=== PATIENT | male | born 1985 | race Caucasian/White ===

== ENCOUNTER 2018-06-21 08:47 | Day surgery (SDC) | payer OTHER ==
[~2018-06-21] VITALS: Ht 170.2 cm; Wt 106.6 kg
[2018-06-21 09:41] LABS: BASOPHILS # (AUTO) 0.1 K/uL (0.00-0.22); BASOPHILS % (AUTO) 1.2 % (0.0-2.0); EOSINOPHILS % (AUTO) 0.1 % (0.0-4.0); HEMOGLOBIN 14.8 g/dL (12.0-18.0); LYMPHOCYTES # (AUTO) 0.9 K/uL (2.0-11.5); LYMPHOCYTES % (AUTO) 15.9 % (20.5-51.1); MEAN CORPUSCULAR HEMOGLOBIN 32 pg (27-31); MEAN CORPUSCULAR HGB CONC 35 g/dL (33-37); MEAN CORPUSCULAR VOLUME 93.7 fL (80-94); MONOCYTES # (AUTO) 0.6 K/uL (0.8-1.0); MONOCYTES % (AUTO) 9.9 % (1.7-9.3); NEUTROPHILS # (AUTO) 4.2 K/uL (1.8-7.7); NEUTROPHILS % (AUTO) 72.9 % (42.2-75.2); PLATELET COUNT (AUTO) 88 K/uL (140-450); RED BLOOD CELL COUNT(AUTO) 4.59 MIL/uL (4.20-6.10); RED CELL DISTRIBUTION WIDTH 13.2 % (11.6-13.7); WHITE BLOOD COUNT (AUTO) 5.8 K/uL (4.8-10.8)
[2018-06-21 09:59] LABS: PROTHROMBIN TIME 10.9 secs (10.8-13.4)
[2018-06-21] MEDS ORDERED: SPIR25TA21 PO (10:16)
[2018-06-21] MEDS ORDERED: LIDOCAINE 2% 1000 MG/50 ML VIAL INJ ONE (10:51)
== END 2018-06-21 13:00 | disposition home or self-care (01) ==
LOC: MDS 08:47 → MMU 08:47 → MDS 13:00
PROVIDERS: ATTEND Internal Medicine Gastroenterology
DX: K70.10 Alcoholic hepatitis without ascites (principal); I10 Essential (primary) hypertension; E11.9 Type 2 diabetes mellitus without complications; F10.21 Alcohol dependence, in remission; E66.9 Obesity, unspecified; Z68.36 Body mass index [BMI] 36.0-36.9, adult; Z79.899 Other long term (current) drug therapy; Z72.89 Other problems related to lifestyle; Z87.891 Personal history of nicotine dependence; Z98.890 Other specified postprocedural states
CPT/HCPCS: 36415; 47000; 76942; 85025; 85610; 85730; 88307; 88313; J2001; Q0092

== ENCOUNTER 2019-06-06 09:53 | Inpatient (IN) | payer OTHER ==
[~2019-06-06] VITALS: Ht 172.7 cm; Wt 91.6 kg
[~2019-06-06 09:53] MED LIST: SPIR25TA21 PO
[2019-06-06 10:05] VITALS: BP 144/74
--- NOTE | 2019-06-06 10:45 | NUR ---
PT ARRIVED TO ED C/O N,V,D X 2 DAYS. PT STATES, "THE VOMITTING LOOKED YELLOW, AND MY LAST DRINK WAS THURSDAY" PT RATES PAIN LEVEL 8/10 ON THE ABD, AND DESCRIBES THE PAIN PRESSURE. PT ABD IS SOFT, FLAT, NONTENDER. BS PRESENT IN ALL 4 QUADS. PT SCERLA IS YELLOW AND SKIN IS JAUNDICE. PT STATES, "GADIEL BEEN JAUNDICE SINCE LAST THURSDAY." PT IS A&O X 4. PMH: HEPATITIS, HTN, DM NKA.
[2019-06-06] MEDS ORDERED: MULTIVITAMIN-12 10 ML, THIAMINE 100 MG, MAGNESIUM SULFATE 50% 2,000 MG, FOLIC ACID 1 MG... IV SCH ×5 (11:20)
[2019-06-06] MEDS ORDERED: ONDANSETRON 4 MG/2 ML VIAL IVP ONE (11:20)
[2019-06-06] MEDS ORDERED: PANTOPRAZOLE 40 MG INJ VIAL IVP ONE (11:20)
[2019-06-06 11:35] LABS: BASOPHILS # (AUTO) 0.1 K/uL (0.00-0.22); BASOPHILS % (AUTO) 1.4 % (0.0-2.0); EOSINOPHILS % (AUTO) 0.5 % (0.0-4.0); HEMATOCRIT 42.3 % (36-52); HEMOGLOBIN 14.7 g/dL (12.0-18.0); LYMPHOCYTES # (AUTO) 0.4 K/uL (2.0-11.5); LYMPHOCYTES % (AUTO) 8.1 % (20.5-51.1); MEAN CORPUSCULAR HEMOGLOBIN 36 pg (27-31); MEAN CORPUSCULAR HGB CONC 35 g/dL (33-37); MEAN CORPUSCULAR VOLUME 102.2 fL (80-94); MONOCYTES # (AUTO) 0.7 K/uL (0.8-1.0); MONOCYTES % (AUTO) 15.7 % (1.7-9.3); NEUTROPHILS # (AUTO) 3.5 K/uL (1.8-7.7); NEUTROPHILS % (AUTO) 74.3 % (42.2-75.2); PLATELET COUNT (AUTO) 38 K/uL (140-450); RED BLOOD CELL COUNT(AUTO) 4.14 MIL/uL (4.20-6.10); RED CELL DISTRIBUTION WIDTH 17.9 % (11.6-13.7); WHITE BLOOD COUNT (AUTO) 4.7 K/uL (4.8-10.8)
[2019-06-06 11:58] LABS: PROTHROMBIN TIME 15.3 secs (10.8-13.4)
[2019-06-06 11:59] LABS: ANION GAP 14.9 (8-16); CARBON DIOXIDE 25.5 mmol/L (21-32); CREATININE 0.5 mg/dL (0.7-1.3); POTASSIUM 3.4 mmol/L (3.5-5.1)
[2019-06-06 12:00] LABS: APPEARANCE,URINE CLEAR (CLEAR); BILIRUBIN,URINE 3+ (NEGATIVE); BLOOD, URINE NEGATIVE (NEGATIVE); COLOR,URINE AMBER (YELLOW); LEUKOCYTE ESTERASE ,URINE TRACE (NEGATIVE); NITRITE, URINE POSITIVE (NEGATIVE); UGLUCOSE 3+ (NEGATIVE)
[2019-06-06 12:15] LABS: ALBUMIN 2.9 g/dL (3.4-5.0); TOTAL BILIRUBIN 33.8 mg/dL (0.0-1.0)
[2019-06-06 12:23] LABS: RBC,URINE 0-5 /HPF (0-5); WBC,URINE 0-5 /HPF (0-5)
[2019-06-06] MEDS ORDERED: LORazepam 2 MG/ML VIAL IVP ONE ×2 (13:05→13:55)
[2019-06-06] MEDS ORDERED: LACTULOSE 20 GM/30 ML UDC PO ONE (13:55)
[2019-06-06] MEDS ORDERED: LEVOFLOXACIN 500 MG/D5W PREMIX 100 ML IV ONE (13:55)
--- NOTE | 2019-06-06 14:40 | NUR ---
RECEIVED PT FROM ED NURSE RUSSELL. PT IS A&O X 4, AMBULATORY, AND ABLE TO MAKE NEEDS KNOWN. PT IS NOT A FALL RISK. PT'S FACE AND SCLERA APPEAR JAUNDICED. PT NO C/O ANY PAIN OR NAUSEA AT THIS TIME. PT IS ON ROOM AIR, SKIN INTACT. VS UPON ADMISSION: BP 125/72, HR 99, O2 97%, TEMP 98.8, RR 18. IV SITE IS IN THE L AC, 20 G. CALL LIGHT IS GIVEN WITHIN REACH, PT FAMILIARIZED WITH THE ROOM.
--- NOTE | 2019-06-06 14:46 | NUR ---
Patient will be admitted to care of [facility]. Admited to TELE. Will go to room 11A. Belongings list completed. Report to KOSTAS IZAGUIRRE.
[2019-06-06 15:55] VITALS: BP 125/72
--- NOTE | 2019-06-06 16:30 | NUR ---
PT SEEN BY DR COFFMAN
[2019-06-06] MEDS ORDERED: LORazepam 1 MG TAB PO PRN (17:05)
[2019-06-06] MEDS ORDERED: HYDROcodone/APAP 5/325 MG 1 TAB TAB PO PRN ×2 (17:15)
[2019-06-06] MEDS ORDERED: IPRATROPIUM 0.02% 0.5 MG/2.5 ML NEBU INH PRN (17:15)
[2019-06-06] MEDS ORDERED: ACETAMINOPHEN 325 MG TAB PO PRN (17:15)
[2019-06-06] MEDS ORDERED: MAGNESIUM OXIDE 400 MG TAB PO PRN (17:15)
[2019-06-06] MEDS ORDERED: MAG SULF 2000 MG/WATER PREMIX 50 ML IV PRN (17:15)
[2019-06-06] MEDS ORDERED: ALUMINUM HYD/MAG/SIMETHICONE 30 ML UDC PO PRN (17:15)
[2019-06-06] MEDS ORDERED: MORPHINE SULFATE 2 MG/ML SYR IVP PRN (17:15)
[2019-06-06] MEDS ORDERED: ONDANSETRON 4 MG/2 ML VIAL IVP PRN (17:15)
[2019-06-06] MEDS ORDERED: SODIUM PHOSPHATE 118 ML ENEM RC PRN (17:15)
[2019-06-06] MEDS ORDERED: ACETAMINOPHEN 650 MG SUPP RC PRN (17:15)
[2019-06-06] MEDS ORDERED: BISACODYL 10 MG SUPP RC PRN (17:15)
[2019-06-06] MEDS ORDERED: cloNIDine 0.1 MG TAB PO PRN (17:15)
[2019-06-06] MEDS ORDERED: diphenhydrAMINE 50 MG/ML VIAL IVP PRN (17:15)
[2019-06-06] MEDS ORDERED: DOCUSATE SODIUM 250 MG GELCAP PO PRN (17:15)
[2019-06-06] MEDS ORDERED: POTASSIUM CHLORIDE 10 MEQ TABER PO PRN (17:15)
[2019-06-06] MEDS ORDERED: LORazepam 2 MG/ML VIAL IVP PRN (17:15)
[2019-06-06] MEDS ORDERED: DEXTROSE 50% 50 ML SYR IVP PRN (17:15)
[2019-06-06] MEDS ORDERED: ALBUTEROL 0.083% 2.5 MG/3 ML NEBU INH PRN (17:15)
[2019-06-06] MEDS ORDERED: ZOLPIDEM 5 MG TAB PO PRN (17:15)
[2019-06-06] MEDS ORDERED: guaiFENesin DM 200/20 MG-10 ML 10 ML UDC PO PRN (17:15)
[2019-06-06] MEDS: NEOMYCIN 500 MG TAB PO SCH (17:34)
--- NOTE | 2019-06-06 17:44 | NUR ---
PT ASLEEP COMFORTABLY, NO S/S OF ANY ACUTE DISTRESS.
[2019-06-06] MEDS: methylPREDNISolone 4 MG TAB PO SCH (18:03)
--- NOTE | 2019-06-06 19:50 | NUR ---
PT ENDORSED TO PROFESSOR OF HISTORICAL THEOLOGY IN STABLE CONDITION
--- NOTE | 2019-06-06 19:51 | NUR ---
BEDSIDE REPORT RECEIVED FROM DAY SHIFT RN. A/O X4 PERSON PLACE TIME AND EVENT. DISCUSSED PLAN OF CARE. VERBALIZED UNDERSTANDING. AMBULATORY WITH STEADY GAIT. NO SIGNS OF DISTRESS. NO SOB. EVEN UNLABORED BREATHING. ROOM AIR. NO PAIN REPORTED AT THIS TIME. SKIN INTACT. IV @ L AC 20G. PATENT AND INTACT. TELE MONITOR PLACED. BED IN LOWEST POSITION. CALL LIGHT WITHIN REACH. WILL CONTINUE TO MONITOR.
[2019-06-06 20:00] VITALS: BP 127/73
[2019-06-06] MEDS: BLOOD GLUCOSE MONITORING 1 DEV DEV FS SCH (20:09)
--- NOTE | 2019-06-06 20:13 | NUR ---
RECEIVED PATIENT ON ROOM AIR, PULSE OX SAT 99%. PATIENT DENIES SOB. PRN BREATHING TREATMENT NOT INDICATED AT THIS TIME. NO ACUTE RESPIRATORY DISTRESS NOTED. WILL CONTINUE TO MONITOR.
[2019-06-06] MEDS: LACTULOSE 20 GM/30 ML UDC PO SCH (20:22)
--- NOTE | 2019-06-06 21:00 | NUR ---
SCHEDULED MEDS ADMINISTERED. EDUCATED ON SIDE EFFECTS AND VERBALIZED UNDERSTANDING. VSS.
[2019-06-06] MEDS: INSULIN LISPRO SLIDING SCALE 100 UNITS/ML VIAL SUBQ PRN (21:06)
--- NOTE | 2019-06-06 23:00 | NUR ---
PT AMBULATED TO RESTROOM. STEADY GAIT. NO SIGNS OF DISTRESS. WILL CONTINUE TO MONITOR.
[2019-06-07] VITALS: BP 127/86
--- NOTE | 2019-06-07 00:47 | NUR ---
PT SLEEPING IN BED. EASILY AROUSABLE. VSS. NO PAIN REPORTED AT THIS TIME.
--- NOTE | 2019-06-07 02:45 | NUR ---
PT IS SLEEPING IN BED EASILY AROUSABLE. NO SIGNS OF DISTRESS. NO PAIN REPORTED. WILL CONTINUE TO MONITOR.
--- NOTE | 2019-06-07 03:46 | NUR ---
RECEIVED FROM PATRICIA KENYON.PT IS SLEEPING W/O S/S OF ANY DISTRESS.CALL LIGHT IN REACH.WILL CONT.MONITOR PT.
[2019-06-07 04:00] VITALS: BP 129/75
--- NOTE | 2019-06-07 04:38 | NUR ---
SLEEPING.HR IS SR.NO DISTRESS NOTED AT TIS TIME.
[2019-06-07] MEDS: BLOOD GLUCOSE MONITORING 1 DEV DEV FS SCH ×4 (05:40→21:38)
[2019-06-07] MEDS: INSULIN LISPRO SLIDING SCALE 100 UNITS/ML VIAL SUBQ PRN ×4 (05:41→22:06)
[2019-06-07] MEDS: NEOMYCIN 500 MG TAB PO SCH ×4 (05:41→17:24)
--- NOTE | 2019-06-07 06:06 | NUR ---
ZU=[id number],COVERED PER SLIDING SCALE.NO C/O PAIN OR ANY DISCOMFORT.
[2019-06-07 07:04] LABS: BASOPHILS % (AUTO) 0.1 % (0.0-2.0); HEMATOCRIT 42.6 % (36-52); HEMOGLOBIN 14.8 g/dL (12.0-18.0); LYMPHOCYTES # (AUTO) 0.6 K/uL (2.0-11.5); LYMPHOCYTES % (AUTO) 14.2 % (20.5-51.1); MEAN CORPUSCULAR HEMOGLOBIN 36 pg (27-31); MEAN CORPUSCULAR HGB CONC 35 g/dL (33-37); MEAN CORPUSCULAR VOLUME 103.2 fL (80-94); MONOCYTES # (AUTO) 0.3 K/uL (0.8-1.0); MONOCYTES % (AUTO) 6.6 % (1.7-9.3); NEUTROPHILS # (AUTO) 3.1 K/uL (1.8-7.7); NEUTROPHILS % (AUTO) 79.1 % (42.2-75.2); PLATELET COUNT (AUTO) 44 K/uL (140-450); RED BLOOD CELL COUNT(AUTO) 4.13 MIL/uL (4.20-6.10); RED CELL DISTRIBUTION WIDTH 18.1 % (11.6-13.7); WHITE BLOOD COUNT (AUTO) 3.9 K/uL (4.8-10.8)
--- NOTE | 2019-06-07 07:19 | NUR ---
Received report from shift nurse manager nurse. Pt is resting in bed. Call light in reach.
[2019-06-07 07:33] LABS: ALBUMIN 2.7 g/dL (3.4-5.0); ANION GAP 18.2 (8-16); CARBON DIOXIDE 19.2 mmol/L (21-32); CREATININE 0.5 mg/dL (0.7-1.3); POTASSIUM 4.4 mmol/L (3.5-5.1); TOTAL BILIRUBIN 36.8 mg/dL (0.0-1.0)
[2019-06-07 08:00] VITALS: BP 149/86
--- NOTE | 2019-06-07 08:14 | NUR ---
PATIENT HAS BEEN SCREENED AND CATEGORIZED MODERATE NUTRITION RISK. PATIENT WILL BE SEEN WITHIN 3-5 DAYS OF ADMISSION. 06/09/19 06/11/[address]
[2019-06-07] MEDS: LACTULOSE 20 GM/30 ML UDC PO SCH ×4 (08:22→21:38)
--- NOTE | 2019-06-07 08:22 | NUR ---
Observed pt with generalized shakiness, no signs of distress, no c/o discomfort/pain. Lorazepam po administered. Bed alarm on, call light within reach. Instructed pt to call nurse for assistance with toileting & amb, verbalized understanding.
[2019-06-07] MEDS: MULTIVITAMIN-12 10 ML, THIAMINE 100 MG, MAGNESIUM SULFATE 50% 2,000 MG, FOLIC ACID 1 MG... IV SCH ×5 (10:25)
[2019-06-07] MEDS: methylPREDNISolone 4 MG TAB PO SCH (10:39)
--- NOTE | 2019-06-07 10:52 | NUR ---
PT SLEEPING IN BED. RESPONSIVE. NO PAIN REPORTED AT THIS TIME
[2019-06-07 12:00] VITALS: BP 118/70
[2019-06-07] MEDS ORDERED: MAG SULF 2000 MG/WATER PREMIX 50 ML IV SCH (12:00)
--- NOTE | 2019-06-07 12:00 | NUR ---
Magnesium sulfate at 1200 not given due to banana bag infusing with magnesium.
--- NOTE | 2019-06-07 13:23 | NUR ---
PT IS SLEEPING. NO SIGNS OF DISTRESS. NO PAIN REPORTED. WILL CONTINUE TO MONITOR.
--- NOTE | 2019-06-07 13:45 | NUR ---
Dr. Fernandez notified of blood cx preliminary result with GRAM POSITIVE COCCI IN CLUSTERS. Per dr, specimen is contaminated. No new orders at this time.
--- NOTE | 2019-06-07 15:54 | NUR ---
YE called PCP's office. YE scheduled appointment for patient with PCP Dr. Arnold Prado [phone]. Patient's appointment is at 06/15/2019 @ 9:30AM at [address] [place] [address]. Patient was made aware of appointment. YE/BRADLEY will follow up as needed.
[2019-06-07 16:00] VITALS: BP 131/69
--- NOTE | 2019-06-07 16:51 | NUR ---
Pt resting in bed. No C/O pain. Family at bed side. Call light within reach.
--- NOTE | 2019-06-07 19:15 | NUR ---
RECEIVED REPORT FROM AM NURSE, PT AT BED AWAKE, ALERT, PERRLA 3MM, BRISK, BREATHING REGULARLY ON ROOM AIR, LUNG SOUNDS CLEAR THROUGHOUT, HEART RATE REGULAR, S1S2 PRESENT, CAP REFILL <3S, PULSES 2+ BILATERAL UPPER AND LOWER EXTREMITIES, ABDOMEN, SOFT, ROUND, NONDISTENDED, NONTENDER, BLADDER, SOFT, ROUND, NONDISTENDED, NONTENDER, PT HAS MUSCULOSKELETAL STRENGTH 5/5 BILATERAL UPPER AND LOWER EXTREMITIES. SKIN WARM, DRY, INTACT, PT HAS PERIPHERAL IV ON LEFT AC 20 GAUGE, RUNNING IVF MVI AT 100 ML/HR. HOB 30 DEGREES, SIDE RAILS UP X2, BED AT LOWEST POSITION.
--- NOTE | 2019-06-07 19:34 | NUR ---
PT ENDORSED TO GLOBAL TRANSPORTATION MANAGER IN STABLE CONDITION
[2019-06-07 20:00] VITALS: BP 127/76
--- NOTE | 2019-06-07 20:52 | NUR ---
RECEIVED PATIENT ON ROOM AIR, PULSE OX SAT 100%. PATIENT DENIES ANY SOB. PRN HHN NOT INDICATED AT THIS TIME. NO ACUTE RESPIRATORY DISTRESS NOTED. WILL CONTINUE TO MONITOR.
[2019-06-08] VITALS: BP 130/76
[2019-06-08] MEDS: NEOMYCIN 500 MG TAB PO SCH ×2 (00:10→04:54)
--- NOTE | 2019-06-08 00:15 | NUR ---
CHECKED VS. ADMINISTERED MEDICATION. PT USED THE RESTROOM TO VOID. PT AT STABLE CONDITION AT THIS TIME.
--- NOTE | 2019-06-08 02:40 | NUR ---
PT AT BED EYES CLOSED, BREATHING REGULARLY AT ROOM AIR. HOB 30 DEGREES, SIDERAILS UP X2, BED AT LOWEST POSITIO.N
[2019-06-08 04:00] VITALS: BP 132/72
--- NOTE | 2019-06-08 04:28 | NUR ---
PT AT BED EYES CLOSED, BREATHING REGULARLY ON ROOM AIR. WILL CONTINUE TO MONITOR.
--- NOTE | 2019-06-08 07:19 | NUR ---
PT AT BED EYES CLOSED, BREATHING REGULARLY ON ROOM AIR. WILL CONTINUE TO MONITOR.
--- NOTE | 2019-06-08 07:19 | NUR ---
Received bedside report from pm nurse Jean Carlos. Pt resting in bed, awake, verbally responsive, no c/o discomfort. Left AC IV saline lock intact & asymptomatic. Call light within reach.
[2019-06-08] MEDS: BLOOD GLUCOSE MONITORING 1 DEV DEV FS SCH ×2 (07:30→11:46)
[2019-06-08 07:59] LABS: ANION GAP 15.1 (8-16); CARBON DIOXIDE 22.7 mmol/L (21-32); POTASSIUM 3.8 mmol/L (3.5-5.1)
[2019-06-08 08:00] VITALS: BP 130/82
[2019-06-08 08:00] LABS: CREATININE 0.5 mg/dL (0.7-1.3); TOTAL BILIRUBIN 38.9 mg/dL (0.0-1.0)
[2019-06-08 08:01] LABS: ALBUMIN 2.7 g/dL (3.4-5.0)
[2019-06-08] MEDS: methylPREDNISolone 4 MG TAB PO SCH (08:42)
[2019-06-08] MEDS: LACTULOSE 20 GM/30 ML UDC PO SCH ×2 (08:42→13:14)
[2019-06-08] MEDS: MULTIVITAMIN-12 10 ML, THIAMINE 100 MG, MAGNESIUM SULFATE 50% 2,000 MG, FOLIC ACID 1 MG... IV SCH ×5 (08:46)
[2019-06-08] MEDS ORDERED: VITA1TAB44 PO (09:49)
[2019-06-08] MEDS ORDERED: LACT10SO1 PO (09:49)
[2019-06-08] MEDS ORDERED: METH4TAB1 PO (09:49)
[2019-06-08] MEDS ORDERED: VITB1I PO (09:49)
[2019-06-08] MEDS ORDERED: SPIR50TA PO (09:49)
[2019-06-08] MEDS ORDERED: LIB5 PO (09:49)
[2019-06-08] MEDS ORDERED: METF500T PO (09:58)
[2019-06-08] MEDS ORDERED: MAG SULF 2000 MG/WATER PREMIX 50 ML IV SCH (10:30)
[2019-06-08] MEDS: INSULIN LISPRO SLIDING SCALE 100 UNITS/ML VIAL SUBQ PRN (11:46)
[2019-06-08 12:00] VITALS: BP 141/91
--- NOTE | 2019-06-08 12:30 | NUR ---
Pt resting in bed, no signs of distress, no c/o discomfort. Left AC IV intact with ongoing Mg-rider. Call light within reach.
--- NOTE | 2019-06-08 15:45 | NUR ---
Abd ultrasound completed at this time. Pt resting in bed, no c/o discomfort, no signs of distress. Call light within reach.
[2019-06-08 16:00] VITALS: BP 125/70
--- NOTE | 2019-06-08 17:00 | NUR ---
Written & verbal discharge instructions provided to pt. Pt verbalized understanding & agree to f/u with PCP & take all meds as prescribed. Pt counseled on alcohol cessation & CCHO diet, verbalized understanding. Left AC IV removed, catheter intact. Pt amb off unit with steady gait, states he will wait in lobby for his sister to transport him home. All belongings with pt upon departure.
--- NOTE | 2019-06-09 01:27 | NUR ---
Deepika VALENCIA called regarding BC result came back for Gram Positive Cocci at 0110 06/09/19. Called [facility] ([phone]) at 0121 06/09/[address] Fernanda dela cruz. Dr Michael called back at 0127 06/09/19, told Dr Michael that pt got discharged by Dr Lundberg 06/08/19 at 1925, and BC just came back from the lab for Gram Positive Cocci. Dr Michael stated," that is OK, pt got discharged already"
== END 2019-06-08 17:00 | disposition home or self-care (01) | DRG 280 ==
LOC: MED 09:53 → MTU 13:59
PROVIDERS: ADMIT Internal Medicine Pulmonary Disease; ATTEND Internal Medicine Pulmonary Disease
DX: K70.30 Alcoholic cirrhosis of liver without ascites (principal); K70.10 Alcoholic hepatitis without ascites; E44.1 Mild protein-calorie malnutrition; E11.9 Type 2 diabetes mellitus without complications; F10.239 Alcohol dependence with withdrawal, unspecified; E87.6 Hypokalemia; E83.42 Hypomagnesemia; E66.9 Obesity, unspecified; F10.20 Alcohol dependence, uncomplicated; I10 Essential (primary) hypertension; N39.0 Urinary tract infection, site not specified; E80.6 Other disorders of bilirubin metabolism; Z68.30 Body mass index [BMI] 30.0-30.9, adult
CPT/HCPCS: 36415; 71045; 76700; 80053; 81001; 82140; 82948; 83605; 83735; 83880; 85025; 85610; 85730; 87040; 87081; 87086; 96365; 96367; 96375; 99285; A9153; C9113; J1815; J1956; J2060; J2405; J3411; J3475; J3490; J7030; J7509; Q0092

== ENCOUNTER 2019-11-17 14:10 | Emergency (ER) | payer OTHER ==
[~2019-11-17] VITALS: Ht 172.7 cm; Wt 88.0 kg
[~2019-11-17 14:10] MED LIST changes: +LACT10SO1 PO; +LIB5 PO; +METF500T PO; +METH4TAB1 PO; -SPIR25TA21 PO; +SPIR50TA PO; +VITA1TAB44 PO; +VITB1I PO
[2019-11-17 14:44] VITALS: BP 107/55
--- NOTE | 2019-11-17 14:55 | NUR ---
PT AMBULATED TO BED 7, STEADY GAIT.
--- NOTE | 2019-11-17 14:59 | NUR ---
PT AMBULATED TO BATHROOM, STEADY GAIT.
--- NOTE | 2019-11-17 15:10 | NUR ---
DR. ELLISON AT BEDSIDE.
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
--- NOTE | 2019-11-17 15:24 | NUR ---
STAT LABS DRAWN AND GIVEN TO LAB.
[2019-11-17 15:34] LABS: BASOPHILS % (AUTO) 0.3 % (0.0-2.0); EOSINOPHILS % (AUTO) 0.3 % (0.0-4.0); HEMATOCRIT 36.8 % (36-52); HEMOGLOBIN 12.7 g/dL (12.0-18.0); LYMPHOCYTES # (AUTO) 2.8 K/uL (2.0-11.5); LYMPHOCYTES % (AUTO) 55.6 % (20.5-51.1); MEAN CORPUSCULAR HEMOGLOBIN 36 pg (27-31); MEAN CORPUSCULAR HGB CONC 35 g/dL (33-37); MEAN CORPUSCULAR VOLUME 104.3 fL (80-94); MONOCYTES # (AUTO) 0.5 K/uL (0.8-1.0); MONOCYTES % (AUTO) 9.6 % (1.7-9.3); NEUTROPHILS # (AUTO) 1.7 K/uL (1.8-7.7); NEUTROPHILS % (AUTO) 34.2 % (42.2-75.2); PLATELET COUNT (AUTO) 69 K/uL (140-450); RED BLOOD CELL COUNT(AUTO) 3.52 MIL/uL (4.20-6.10); RED CELL DISTRIBUTION WIDTH 18.1 % (11.6-13.7)
[2019-11-17 16:13] LABS: ALBUMIN 2.1 g/dL (3.4-5.0); ANION GAP 11.1 (8-16); CARBON DIOXIDE 26.7 mmol/L (21-32); CREATININE 0.7 mg/dL (0.6-1.3); POTASSIUM 3.8 mmol/L (3.5-5.1); PROTHROMBIN TIME 16.5 secs (10.8-13.4)
[2019-11-17 16:18] LABS: TOTAL BILIRUBIN 36.4 mg/dL (0.0-1.0)
--- NOTE | 2019-11-17 17:27 | NUR ---
VSS AND PT SITTING UP IN BED, RR EVEN AND UNLABORED, NO DISTRESS.
--- NOTE | 2019-11-17 17:46 | NUR ---
LAB AT BEDSIDE TO DRAW CULTURES.
--- NOTE | 2019-11-17 19:15 | NUR ---
REPORT RECEIVED FROM ANGELIA, TRANSFER OF CARE AT THIS TIME
--- NOTE | 2019-11-17 19:30 | NUR ---
Pt report given to ASAEL. Transfer of care at this time.
--- NOTE | 2019-11-17 19:45 | NUR ---
PATIENT ALERT AND AWAKE, BREATHING EVEN AND UNLABORED. SIGNED CONSENT FOR TRANSFER TO [facility]
--- NOTE | 2019-11-17 20:35 | NUR ---
Patient to be transferred to [facility]. Is being transferred due to hyperbilirubinemia. Receiving facility has accepting physician and available space. ER physician has signed transfer form. Patient or responsible republican has agreed to transfer and signed form. Patient belongings inventoried and will be sent with patient. Copy of nursing notes, lab reports, EKG, Physicians Orders and X-rays to be sent with patient. Report called to Vannesa at receiving facility. [facility] ambulance service has been called for transfer. ETA is 30 mins.
--- NOTE | 2019-11-17 20:45 | NUR ---
[facility] IN PROCESS OF TRANSFERING PATIENT
--- NOTE | 2019-11-17 20:47 | NUR ---
BS 159
--- NOTE | 2019-11-17 20:54 | NUR ---
PATIENT HAS BEEN TAKEN AWAY FROM FACILITY BY [facility]
[2019-11-17 21:01] VITALS: BP 117/59
== END 2019-11-17 20:55 | disposition short-term general hospital (02) ==
LOC: MED 14:10
DX: E80.6 Other disorders of bilirubin metabolism (principal); I10 Essential (primary) hypertension; F10.10 Alcohol abuse, uncomplicated; E11.9 Type 2 diabetes mellitus without complications; Z79.899 Other long term (current) drug therapy
CPT/HCPCS: 36415; 80053; 82140; 82948; 85025; 85610; 85730; 87040; 99285

== ENCOUNTER 2019-12-16 15:45 | Emergency (ER) | payer OTHER ==
[~2019-12-16] VITALS: Ht 170.2 cm; Wt 85.3 kg
[2019-12-16 16:06] VITALS: BP 137/66
[2019-12-16] MEDS ORDERED: KETOROLAC 30 MG/ML VIAL IM ONE (16:10)
[2019-12-16 17:24] LABS: BASOPHILS % (AUTO) 0.9 % (0.0-2.0); EOSINOPHILS % (AUTO) 0.7 % (0.0-4.0); HEMATOCRIT 35.4 % (36-52); HEMOGLOBIN 12.1 g/dL (12.0-18.0); LYMPHOCYTES # (AUTO) 1.3 K/uL (2.0-11.5); LYMPHOCYTES % (AUTO) 26.7 % (20.5-51.1); MEAN CORPUSCULAR HEMOGLOBIN 37 pg (27-31); MEAN CORPUSCULAR HGB CONC 34 g/dL (33-37); MEAN CORPUSCULAR VOLUME 107.9 fL (80-94); MONOCYTES # (AUTO) 0.6 K/uL (0.8-1.0); MONOCYTES % (AUTO) 12.9 % (1.7-9.3); NEUTROPHILS # (AUTO) 2.9 K/uL (1.8-7.7); NEUTROPHILS % (AUTO) 58.8 % (42.2-75.2); PLATELET COUNT (AUTO) 76 K/uL (140-450); RED BLOOD CELL COUNT(AUTO) 3.29 MIL/uL (4.20-6.10); RED CELL DISTRIBUTION WIDTH 15.7 % (11.6-13.7); WHITE BLOOD COUNT (AUTO) 4.9 K/uL (4.8-10.8)
[2019-12-16 17:32] LABS: BARBITURATE, URINE NEGATIVE ng/ml (NEG <=200); BENZODIAZEPINE, URINE NEGATIVE ng/mL (NEG <=200); CANNABINOID, URINE POSITIVE ng/mL (NEG <=50); COCAINE, URINE NEGATIVE ng/mL (NEG <=300); OPIATE, URINE NEGATIVE ng/mL (NEG <=2000); PHENCYCLIDINE SCREEN,URINE NEGATIVE ng/mL (NEG <=25)
[2019-12-16 17:41] LABS: ACETAMINOPHEN < 0.5 ug/ml (10-30); ANION GAP 8.3 (8-16); ASPARTATE AMINOTRANSFERASE 371 U/L (15-37); CHLORIDE 102 mmol/L (98-107); CREATININE 0.6 mg/dL (0.6-1.3); GFR ARICAN-AMERICAN 198 mL/min (>90); GLUCOSE 400 mg/dL (74-106); POTASSIUM 3.3 mmol/L (3.5-5.1); SALICYLATE < 2.8 mg/dL (2.8-20.0); SODIUM SERUM 138 mmol/L (136-145); TOTAL BILIRUBIN 9.8 mg/dL (0.0-1.0); UREA NITROGEN, BLOOD 4 mg/dL (7-18)
[2019-12-16 18:20] VITALS: BP 127/74
== END 2019-12-16 18:20 | disposition home or self-care (01) ==
LOC: MED 15:45
DX: F10.10 Alcohol abuse, uncomplicated (principal); R74.0 Nonspecific elevation of levels of transaminase and lactic acid dehydrogenase [LDH]; E80.6 Other disorders of bilirubin metabolism; E11.9 Type 2 diabetes mellitus without complications; I10 Essential (primary) hypertension; Z79.899 Other long term (current) drug therapy; Z79.84 Long term (current) use of oral hypoglycemic drugs; Z88.0 Allergy status to penicillin
CPT/HCPCS: 36415; 80053; 80305; 82948; 85025; 99284; G0480; G0482

== ENCOUNTER 2020-10-10 22:15 | Emergency (ER) | payer OTHER ==
[~2020-10-10] VITALS: Ht 175.3 cm; Wt 74.8 kg
[~2020-10-10 22:15] MED LIST changes: +LACT-103 PO; -LACT10SO1 PO
--- NOTE | 2020-10-10 22:30 | NUR ---
PT NADER ALS. TAKEN TO BED 4
[2020-10-10 22:37] VITALS: BP 132/72
--- NOTE | 2020-10-10 22:45 | NUR ---
PATIENT 35 Y/O MALE BIBA ALS FOR C/O SEIZURE ACTIVITY AT HOME. PER FAMILY PATIENT HAD WITNESSED 30 MIN AGO. PER FAMILY UNSURE HOW LONG SEIZURE WAS. PATIENT GCS 10, PATIENT RESPONSIVE TO PAINFUL STIMULI AND MUMMBLES. PER EMS PATIENT GIVEN VERSED PRIOR TO ARRIVAL AND IV 18G PLACED IN R AC. PATIENT UNABLE TO AMBUALTED AT THIS TIME. PERRL 3MM SLUGGISH. PATIENT RESPIRATIONS ARE EVEN AND UNLABORED. SKIN IS WARM AND DRY TO TOUCH. JAUNDICE NOTED IN SKIN. PER EMS REPOST PATIENT WAS D/C FROM REHAB X 1 WEEK AGO AND CONTINUED TO DRINK UPON ARRIVING AT HOME. PATIENT ACCUCHECK 466 ERMD MADE AWARE. PATIENT REMAINS ON HOUSE MANAGER, VSS. SEIZURE PRECAUTIONS IN PLACE AND SUCTION EQUIPMENT SET UP AND IN PLACE AT BEDSIDE. BED IS LOCKED AND IN LOWEST POSITON. SEE COMPLETE ASSESSMENT FOR FURTHER DETAILS. MEDHX: ETOH ABUSE, DM TYPE II, HTN, CIRRHOSIS ALLERGIES: PCN
--- NOTE | 2020-10-10 22:51 | NUR ---
Dr. Cronin examining patient.
[2020-10-10] MEDS ORDERED: NACL 0.9% 2,000 ML IV ONE (22:55)
[2020-10-10] MEDS ORDERED: LORazepam 2 MG/ML VIAL IVP ONE (22:55)
[2020-10-10] MEDS ORDERED: FOLIC ACID 5 MG/ML SYR IM ONE (23:00)
[2020-10-10] MEDS ORDERED: THIAMINE 200 MG/2 ML VIAL IM ONE (23:00)
[2020-10-10] MEDS ORDERED: MAG SULF 2000 MG/WATER PREMIX 50 ML IV ONE (23:00)
--- NOTE | 2020-10-10 23:08 | NUR ---
LAB AT BEDSIDE.
--- NOTE | 2020-10-10 23:10 | NUR ---
EKG BEING PERFORMED AT BEDSIDE.
--- NOTE | 2020-10-10 23:15 | NUR ---
EKG PERFORMED AT BEDSIDE. EKG READS SINUS RHYTHM @ 89
[2020-10-10 23:16] LABS: BASOPHILS % (AUTO) 0.4 % (0.0-2.0); EOSINOPHILS # (AUTO) 0.1 K/uL (0-0.4); HEMATOCRIT 31.8 % (36-52); HEMOGLOBIN 10.9 g/dL (12.0-18.0); LYMPHOCYTES # (AUTO) 0.8 K/uL (2.0-11.5); LYMPHOCYTES % (AUTO) 30.6 % (20.5-51.1); MEAN CORPUSCULAR HEMOGLOBIN 36 pg (27-31); MEAN CORPUSCULAR HGB CONC 34 g/dL (33-37); MONOCYTES # (AUTO) 0.7 K/uL (0.8-1.0); MONOCYTES % (AUTO) 25.7 % (1.7-9.3); NEUTROPHILS # (AUTO) 1.1 K/uL (1.8-7.7); NEUTROPHILS % (AUTO) 41.3 % (42.2-75.2); PLATELET COUNT (AUTO) 50 K/uL (140-450); RED BLOOD CELL COUNT(AUTO) 3.03 MIL/uL (4.20-6.10); WHITE BLOOD COUNT (AUTO) 2.6 K/uL (4.8-10.8)
--- NOTE | 2020-10-10 23:22 | NUR ---
PT TAKEN TO RADIOLOGY
[2020-10-10] MEDS ORDERED: levETIRAcetam 1,000 MG in NACL 0.9% 100 ML IV ONE (23:30)
--- NOTE | 2020-10-10 23:33 | NUR ---
PT RETURN FROM RADIOLOGY
--- NOTE | 2020-10-10 23:36 | NUR ---
DR. ARSHAD SPOKE TO PATIENT FAMILY ON PHONE AND UPDATED THEM ON HIS CONDITION.
[2020-10-10] MEDS ORDERED: OSMITROL 25% 12.5 GM/50 ML VIAL IV SCH (23:40)
[2020-10-10 23:42] LABS: ALBUMIN 2.5 g/dL (3.4-5.0); ASPARTATE AMINOTRANSFERASE 135 U/L (15-37); CHLORIDE 101 mmol/L (98-107); CREATININE 0.8 mg/dL (0.6-1.3); GFR ARICAN-AMERICAN 141 mL/min (>90); SODIUM SERUM 133 mmol/L (136-145); TOTAL BILIRUBIN 3.1 mg/dL (0.0-1.0); UREA NITROGEN, BLOOD 11 mg/dL (7-18)
[2020-10-10] MEDS ORDERED: INTUBATION KIT MC ONE (23:44)
[2020-10-10] MEDS ORDERED: ROCURONIUM 50 MG/5 ML VIAL IV SCH (23:45)
[2020-10-10] MEDS ORDERED: ETOMIDATE 20 MG/10 ML VIAL IVP SCH (23:45)
--- NOTE | 2020-10-10 23:45 | NUR ---
Dr. Cronin at bedside.
[2020-10-10 23:48] LABS: GLUCOSE 458 mg/dL (74-106)
[2020-10-10] MEDS ORDERED: PROPOFOL 1000 MG/100 ML PREMIX 100 ML IV ONE (23:57)
--- NOTE | 2020-10-11 | NUR ---
CHARGE NURSE SHEREE KENYON AT BEDSIDE GIVING INTUBATION MEDICATION. PATIENT ON CARIDAC MONITOR. VSS. RT AT BEDSIDE. ERMD AT BEDSIDE.
--- NOTE | 2020-10-11 00:01 | NUR ---
RT AT BEDSIDE WITH HILDA ARSHAD FOR INTUBATION PROCEDURE TO BE PERFORMED. PATIENT INTUBATED SIZE 7.5 24CM @ TEETH. VENT SETTINGS AC/VC 500, RR:14, FIO2: 100%, PEEP 5.
[2020-10-11 00:04] LABS: PROTHROMBIN TIME 11.1 secs (10.8-13.4)
[2020-10-11] MEDS ORDERED: OSMITROL 25% 12.5 GM/50 ML VIAL IV SCH (00:05)
[2020-10-11] MEDS ORDERED: PROPOFOL 1000 MG/100 ML PREMIX 100 ML IV PRN (00:05)
--- NOTE | 2020-10-11 00:05 | NUR ---
PROPOFOL INITIATIED SEE IV SPREADSHEET FOR VS.
--- NOTE | 2020-10-11 00:15 | NUR ---
XRAY AT BEDSIDE TO CHECK FOR ETT AND OGT PLACEMENT VERIFICATION. O2 @ 98% RT REMAINS AT BEDSIDE.
--- NOTE | 2020-10-11 00:52 | NUR ---
# 16 FR Brown catheter with 10 ml utilizing sterile technique. Immediate return of 200 ml YELLOW urine noted. Bedside drainage bag placed below level of bladder. Urine sample collected and sent to lab. Pt tolerated procedure WELL.
--- NOTE | 2020-10-11 01:02 | NUR ---
IV removed, catheter intact and site benign. Applied folded 4x4 gauze and tape to stop bleeding.
--- NOTE | 2020-10-11 01:02 | NUR ---
PATIENT IV REMOVED BY ACCIDENT. NEW IV PLACEMENT INSERTED.
--- NOTE | 2020-10-11 01:04 | NUR ---
[facility] TRANSPORT AT BEDSIDE
[2020-10-11 01:21] LABS: APPEARANCE,URINE CLEAR (CLEAR); BILIRUBIN,URINE NEGATIVE (NEGATIVE); BLOOD, URINE NEGATIVE (NEGATIVE); COLOR,URINE YELLOW (YELLOW); LEUKOCYTE ESTERASE ,URINE NEGATIVE (NEGATIVE); NITRITE, URINE NEGATIVE (NEGATIVE); UGLUCOSE 3+ (NEGATIVE)
--- NOTE | 2020-10-11 01:23 | NUR ---
Patient to be transferred to [facility] ER. Is being transferred due to R SUBDURAL HEMATOMA WITH MISLINE SHIFT TO THE LEFT. Receiving facility has accepting physician and available space. ER physician has signed transfer form. Patient belongings inventoried and will be sent with patient. Copy of nursing notes, lab reports, EKG, Physicians Orders and X-rays to be sent with patient. Report called to LIAM KENYON at receiving facility. [facility] ambulance service has been called for transfer. ETA is TO [facility] IS 6-10 MIN.
--- NOTE | 2020-10-11 01:23 | NUR ---
SPOKE WITH LIAM KENYON AND GAVE REPORT FOR PATIENT TRANSFER FROM [facility] TO [facility].
[2020-10-11 01:38] LABS: BARBITURATE, URINE NEGATIVE ng/ml (NEG <=200); BENZODIAZEPINE, URINE POSITIVE ng/mL (NEG <=200); CANNABINOID, URINE NEGATIVE ng/mL (NEG <=50); COCAINE, URINE NEGATIVE ng/mL (NEG <=300); OPIATE, URINE NEGATIVE ng/mL (NEG <=2000); PHENCYCLIDINE SCREEN,URINE NEGATIVE ng/mL (NEG <=25)
--- NOTE | 2020-10-11 01:42 | NUR ---
SEE IV SPREADSHEET FOR VS. EMS TRANSPORTING PATIENT VIA BVM.
--- NOTE | 2020-10-11 01:42 | NUR ---
PT TAKEN BY [facility] TRANSPORT TO [facility] ER
--- NOTE | 2020-10-11 02:12 | NUR ---
DR. ARSHAD SPOKE TO PATIENT FAMILY ON PHONE AND UPDATED THEM ON HIS CONDITION.
[2020-10-11 03:04] LABS: ACETAMINOPHEN < 0.5 ug/ml (10-30); SALICYLATE < 2.8 mg/dL (2.8-20.0)
[2020-10-11 03:21] VITALS: BP 177/101
== END 2020-10-11 01:42 | disposition designated cancer center or children's hospital (05) ==
LOC: MED 22:15
DX: S06.5X9A Traumatic subdural hemorrhage with loss of consciousness of unspecified duration, initial encounter (principal); Z20.822 Contact with and (suspected) exposure to COVID-19; E11.9 Type 2 diabetes mellitus without complications; I10 Essential (primary) hypertension; Z79.84 Long term (current) use of oral hypoglycemic drugs; Z79.899 Other long term (current) drug therapy; Z88.0 Allergy status to penicillin; X58.XXXA Exposure to other specified factors, initial encounter; Y93.89 Activity, other specified; Y92.89 Other specified places as the place of occurrence of the external cause; Y99.8 Other external cause status
CPT/HCPCS: 31500; 36415; 70450; 71045; 80053; 80305; 81003; 82140; 84484; 85025; 85610; 85730; 87426; 93005; 96361; 96365; 96366; 96375; 99291; G0480; G0482; J1953; J2060; J2150; J2704; J7030

== ENCOUNTER 2021-01-28 18:02 | Emergency (ER) | payer OTHER ==
[~2021-01-28] VITALS: Ht 172.7 cm; Wt 81.6 kg
--- NOTE | 2021-01-28 18:06 | NUR ---
Patient BIBA BLS, transferred to bed 6. RN evaluating the patient at bedside.
[2021-01-28 18:08] VITALS: BP 132/69
--- NOTE | 2021-01-28 18:14 | NUR ---
35 Y/O M BIBA FROM HOME, [facility] STATES PT DRANK A PINT OF VODKA, SISTER STATES HE WAS ACTING INAPPROPRIATELY AND CALLED EMS. DENIES N/V/D; SKIN IS PINK/WARM/DRY; AAOX4 WITH EVEN AND STEADY GAIT; LUNGS CLEAR BL; HR EVEN AND REGULAR; PT DENIES ANY FEVER, CP, SOB, OR COUGH AT THIS TIME; PATIENT STATES PAIN OF 0/10 AT THIS TIME; VSS; PATIENT POSITIONED FOR COMFORT; HOB ELEVATED; BEDRAILS UP X2; BED DOWN. ER MD MADE AWARE OF PT STATUS. PMH: SEIZURE, HTN, DM2 ALLERGY: PENICILLIN
[2021-01-28] MEDS ORDERED: NACL 0.9% 1,000 ML IV ONE (18:40)
--- NOTE | 2021-01-28 18:45 | NUR ---
Blood sample collected, handed to CPT Georgia at ER bedside.
[2021-01-28 18:52] LABS: BASOPHILS % (AUTO) 0.4 % (0.0-2.0); EOSINOPHILS % (AUTO) 0.5 % (0.0-4.0); HEMATOCRIT 36.2 % (36-52); HEMOGLOBIN 12.8 g/dL (12.0-18.0); LYMPHOCYTES # (AUTO) 0.8 K/uL (2.0-11.5); MEAN CORPUSCULAR HEMOGLOBIN 34 pg (27-31); MEAN CORPUSCULAR HGB CONC 35 g/dL (33-37); MEAN CORPUSCULAR VOLUME 95.2 fL (80-94); MONOCYTES # (AUTO) 0.8 K/uL (0.8-1.0); MONOCYTES % (AUTO) 14.5 % (1.7-9.3); NEUTROPHILS # (AUTO) 3.8 K/uL (1.8-7.7); NEUTROPHILS % (AUTO) 70.6 % (42.2-75.2); RED CELL DISTRIBUTION WIDTH 14.5 % (11.6-13.7); WHITE BLOOD COUNT (AUTO) 5.4 K/uL (4.8-10.8)
[2021-01-28 18:55] LABS: PLATELET COUNT (AUTO) 29 K/uL (140-450)
--- NOTE | 2021-01-28 18:59 | NUR ---
PT TAKEN TO CT
--- NOTE | 2021-01-28 18:59 | NUR ---
Patient taken to CT scan via gurney by RN evaluating the patient at bedside.
[2021-01-28 19:10] LABS: ALBUMIN 3.1 g/dL (3.4-5.0); ANION GAP 10.2 (8-16); CARBON DIOXIDE 28.3 mmol/L (21-32); CREATININE 0.7 mg/dL (0.6-1.3); POTASSIUM 3.5 mmol/L (3.5-5.1); TOTAL BILIRUBIN 3.8 mg/dL (0.0-1.0)
--- NOTE | 2021-01-28 19:20 | NUR ---
PT. IS CALM AND COOPERATIVE. PT IS RESTING COMFORTABLY IN BED. VOICES NO COMPLAINTS.
[2021-01-28] MEDS ORDERED: BLOOD GLUCOSE MONITORING 1 DEV DEV FS ONE (21:00)
--- NOTE | 2021-01-28 21:57 | NUR ---
Patient discharged with v/s stable. Written and verbal after care instructions given and explained. Patient verbalized understanding. Ambulatory with steady gait. All questions addressed prior to discharge. Advised to follow up with PMD.
--- NOTE | 2021-01-29 19:24 | NUR ---
LATE ENTRY- 0.9% NS BOLUS DISCONTINUED AT 2000
== END 2021-01-28 21:57 | disposition home or self-care (01) ==
LOC: MED 18:02
DX: S01.112A Laceration without foreign body of left eyelid and periocular area, initial encounter (principal); F10.129 Alcohol abuse with intoxication, unspecified; E11.65 Type 2 diabetes mellitus with hyperglycemia; I10 Essential (primary) hypertension; Z88.0 Allergy status to penicillin; Z79.899 Other long term (current) drug therapy; Z79.84 Long term (current) use of oral hypoglycemic drugs; W19.XXXA Unspecified fall, initial encounter; Y93.89 Activity, other specified; Y92.89 Other specified places as the place of occurrence of the external cause; Y99.8 Other external cause status
CPT/HCPCS: 36415; 70450; 80053; 85025; 96360; 99284; G0482; J7030

== ENCOUNTER 2021-02-15 05:44 | Day surgery (SDC) | payer OTHER ==
[~2021-02-15] VITALS: Ht 172.7 cm; Wt 78.9 kg
[2021-02-15] MEDS ORDERED: fentaNYL citrate 0.05 MG/ML VIAL ONE (08:00)
[2021-02-15] MEDS ORDERED: MIDAZOLAM 5 MG/5 ML VIAL ONE (08:00)
[2021-02-15] MEDS ORDERED: LIDOCAINE VISCOUS 2% 20 ML UDC ONE (08:02)
[2021-02-15] MEDS ORDERED: MIDAZOLAM 2 MG/2 ML VIAL IVP ONE (10:40)
== END 2021-02-15 08:51 | disposition home or self-care (01) ==
LOC: MDS 05:44 → MMU 06:15 → MDS 08:51
PROVIDERS: ATTEND Internal Medicine Gastroenterology
DX: K70.9 Alcoholic liver disease, unspecified (principal); E11.40 Type 2 diabetes mellitus with diabetic neuropathy, unspecified; I10 Essential (primary) hypertension; Z79.4 Long term (current) use of insulin; Z79.899 Other long term (current) drug therapy; Z20.822 Contact with and (suspected) exposure to COVID-19
CPT/HCPCS: 43235; J2250; U0003; J3010

== ENCOUNTER 2021-09-26 18:42 | Emergency (ER) | payer OTHER ==
[~2021-09-26] VITALS: Ht 167.6 cm; Wt 68.0 kg
[~2021-09-26 18:42] MED LIST changes: +ACAM333T PO; +FURO20TA8 PO; +GABA400C PO; +INSU100V6 SQ; +LEVE500T18 PO; -LIB5 PO; -METF500T PO; -METH4TAB1 PO; +NOVN SUBQ; +RIFA550T PO
--- NOTE | 2021-09-26 18:43 | NUR ---
code brain at this time
[2021-09-26 18:45] VITALS: BP 136/47
[2021-09-26] MEDS ORDERED: NACL 0.9% 1,000 ML IV ONE (18:45)
--- NOTE | 2021-09-26 18:45 | NUR ---
c collar placed on pt at this time per md garcia
--- NOTE | 2021-09-26 18:46 | NUR ---
pt taken to ct at this time
--- NOTE | 2021-09-26 19:37 | NUR ---
LABS AT BEDSIDE
--- NOTE | 2021-09-26 19:40 | NUR ---
REPORT GIVEN TO NATASHA KENYON, TRANSFER OF CARE AT THIS TIME
--- NOTE | 2021-09-26 19:41 | NUR ---
Katelynn painting in [facility] - 09/26/21 at 2028 by [email or web address] TRANSFER OF CARE REPORT RECIEVED FROM LICHA KENYON
[2021-09-26 19:59] LABS: BASOPHILS % (AUTO) 0.4 % (0.0-2.0); EOSINOPHILS % (AUTO) 0.7 % (0.0-4.0); HEMATOCRIT 35.6 % (36-52); HEMOGLOBIN 12.4 g/dL (12.0-18.0); LYMPHOCYTES # (AUTO) 0.6 K/uL (2.0-11.5); LYMPHOCYTES % (AUTO) 17.8 % (20.5-51.1); MEAN CORPUSCULAR HEMOGLOBIN 36 pg (27-31); MEAN CORPUSCULAR HGB CONC 35 g/dL (33-37); MEAN CORPUSCULAR VOLUME 103.3 fL (80-94); MONOCYTES # (AUTO) 0.4 K/uL (0.8-1.0); MONOCYTES % (AUTO) 11.9 % (1.7-9.3); NEUTROPHILS # (AUTO) 2.5 K/uL (1.8-7.7); NEUTROPHILS % (AUTO) 69.2 % (42.2-75.2); PLATELET COUNT (AUTO) 48 K/uL (140-450); RED BLOOD CELL COUNT(AUTO) 3.44 MIL/uL (4.20-6.10); RED CELL DISTRIBUTION WIDTH 15.7 % (11.6-13.7); WHITE BLOOD COUNT (AUTO) 3.6 K/uL (4.8-10.8)
[2021-09-26 20:35] LABS: ALBUMIN 2.3 g/dL (3.4-5.0); ANION GAP 15.1 (8-16); ASPARTATE AMINOTRANSFERASE 115 U/L (15-37); CARBON DIOXIDE 22.2 mmol/L (21-32); CHLORIDE 101 mmol/L (98-107); CREATININE 0.6 mg/dL (0.6-1.3); GFR ARICAN-AMERICAN 196 mL/min (>90); GLUCOSE 146 mg/dL (74-106); POTASSIUM 4.3 mmol/L (3.5-5.1); SODIUM SERUM 134 mmol/L (136-145); TOTAL BILIRUBIN 3.4 mg/dL (0.0-1.0); UREA NITROGEN, BLOOD 14 mg/dL (7-18)
--- NOTE | 2021-09-26 20:50 | NUR ---
36 Y/O MALE BIBA FOR ALOC. PATIENT PRESENTS TO ED WITH ALOC AND LOW BLOOD SUGAR OF 51, EMS GAVE D50 WITH NO IMPROVEMENT. BGL ON ARRIVAL TO ED, 136. PT HAS LACERATION TO R BACK OF HEAD. EMS DENIES N/V/D; SKIN IS PINK/WARM/DRY; UNCONSCIOUS AND UNABLE TO ASSESS GAIT; LUNGS CLEAR BL; HR EVEN AND REGULAR; EMS DENIES ANY FEVER, CP, SOB, OR COUGH AT THIS TIME; UNABLE TO ASSESS PAIN AT THIS TIME; VSS; PATIENT POSITIONED FOR COMFORT; HOB ELEVATED; BEDRAILS UP X2; BED DOWN. ER MD MADE AWARE OF PT STATUS. PMH:DM, HTN, ETOH ALL: PCN
[2021-09-26 21:16] LABS: PROTHROMBIN TIME 13.3 secs (10.8-13.4)
[2021-09-26] MEDS ORDERED: LACTULOSE 20 GM/30 ML UDC PO ONE (21:50)
[2021-09-26] MEDS ORDERED: VANCOMYCIN 1,000 MG in DEXTROSE 5% 250 ML IV ONE (21:50)
[2021-09-26] MEDS ORDERED: cefTRIAXone 1,000 MG VIAL ONE (22:34)
[2021-09-26] MEDS ORDERED: VANCOMYCIN 1,000 MG VIAL ONE (22:36)
--- NOTE | 2021-09-26 23:48 | NUR ---
URINE COLLECTED AND GIVEN TO KIM
[2021-09-27 00:17] LABS: BARBITURATE, URINE NEGATIVE ng/ml (NEG <=200); BENZODIAZEPINE, URINE NEGATIVE ng/mL (NEG <=200); CANNABINOID, URINE POSITIVE ng/mL (NEG <=50); COCAINE, URINE NEGATIVE ng/mL (NEG <=300); OPIATE, URINE NEGATIVE ng/mL (NEG <=2000); PHENCYCLIDINE SCREEN,URINE NEGATIVE ng/mL (NEG <=25)
[2021-09-27] MEDS ORDERED: ONDANSETRON 4 MG/2 ML VIAL ONE (04:15)
[2021-09-27] MEDS ORDERED: ONDANSETRON 4 MG/2 ML VIAL IVP ONE (04:30)
--- NOTE | 2021-09-27 05:38 | NUR ---
PT IS SLEEPING BUT EASILY AROUSABLE. PT IS ASKING QUESTIONS AND RESPONDING APPROPRIATELY. HOB RAISED, RAILS UP X2, AND BED IN LOWEST SETTING.
--- NOTE | 2021-09-27 07:28 | NUR ---
GAVE RTANSFER OF CARE REPORT TO ZAIRA KENYON
[2021-09-27] MEDS ORDERED: LORazepam 2 MG/ML VIAL IVP ONE (08:10)
--- NOTE | 2021-09-27 08:15 | NUR ---
Trans pt to bed 4 at this time. Assumed care of pt
--- NOTE | 2021-09-27 08:31 | NUR ---
Pt is AOX4, able to make all needs known. Denies N/V/D/CP at this time. Resp even and unlabored on RA (99%). Lung sounds are clear/diminished. No cough at this time. VSS. Pt able to reposition self. SR up for safety. Denies pain at this time. Incontinent care provided and new brief positioned. Pt is self reported incontinent. Call light in reach.
[2021-09-27] MEDS ORDERED: LORazepam 2 MG/ML VIAL ONE (10:59)
--- NOTE | 2021-09-27 12:23 | NUR ---
Attempted to give report to Destiney RN at [place], she is unavailable at this time. She was made aware that pt will be picked up in 20 minutes. call back number given.
[2021-09-27 13:00] VITALS: BP 112/57
--- NOTE | 2021-09-27 13:00 | NUR ---
Patient to be transferred to [facility]. Is being transferred due to Higher level of care. Receiving facility has accepting physician and available space. ER physician has signed transfer form. Patient or responsible libertarian has agreed to transfer and signed form. Patient belongings inventoried and will be sent with patient. Copy of nursing notes, lab reports, EKG, Physicians Orders and X-rays to be sent with patient. Report called to Varsha KENYON at receiving facility. Pt transport to [facility] via gurney at this time. VSS. Cellphone and glassess endorsed to EMT.
--- NOTE | 2021-09-27 13:40 | NUR ---
Lab called with an ammonia level of 119. Lab called to Destiney KENYON at [facility] with readback.
--- NOTE | 2021-10-02 14:53 | NUR ---
LATE ENTRY- IV FLUIDS DISCONTINUED AT 1300.
== END 2021-09-27 13:00 | disposition short-term general hospital (02) ==
LOC: MED 18:42
DX: K72.91 Hepatic failure, unspecified with coma (principal); E08.649 Diabetes mellitus due to underlying condition with hypoglycemia without coma; G06.2 Extradural and subdural abscess, unspecified; L03.811 Cellulitis of head [any part, except face]; I10 Essential (primary) hypertension; Z20.822 Contact with and (suspected) exposure to COVID-19
CPT/HCPCS: 36415; 70450; 71045; 72125; 80053; 80305; 82140; 83605; 85025; 85610; 85730; 86886; 86900; 86901; 87040; 87426; 96361; 96365; 96367; 96375; 99291; G0482; J0696; J2060; J2405; J3370; J7030

== ENCOUNTER 2021-11-02 09:30 | Emergency (ER) | payer OTHER ==
[~2021-11-02] VITALS: Ht 172.7 cm; Wt 74.1 kg
[2021-11-02 09:51] VITALS: BP 132/81
--- NOTE | 2021-11-02 09:55 | NUR ---
PT AMB TO ER BED 9, UA CUP GIVEN
--- NOTE | 2021-11-02 10:10 | NUR ---
LABS COLLECTED HANDED OVER TO CATALINA
--- NOTE | 2021-11-02 10:32 | NUR ---
DR. MORAN BEDSIDE EVALUATING PT
[2021-11-02 11:45] LABS: BASOPHILS % (AUTO) 0.4 % (0.0-2.0); EOSINOPHILS % (AUTO) 1.5 % (0.0-4.0); HEMATOCRIT 30.9 % (36-52); HEMOGLOBIN 10.8 g/dL (12.0-18.0); LYMPHOCYTES # (AUTO) 0.8 K/uL (2.0-11.5); LYMPHOCYTES % (AUTO) 35.4 % (20.5-51.1); MEAN CORPUSCULAR HEMOGLOBIN 36 pg (27-31); MEAN CORPUSCULAR HGB CONC 35 g/dL (33-37); MEAN CORPUSCULAR VOLUME 103.8 fL (80-94); MONOCYTES # (AUTO) 0.6 K/uL (0.8-1.0); MONOCYTES % (AUTO) 26.5 % (1.7-9.3); NEUTROPHILS # (AUTO) 0.8 K/uL (1.8-7.7); NEUTROPHILS % (AUTO) 36.2 % (42.2-75.2); PLATELET COUNT (AUTO) 42 K/uL (140-450); RED BLOOD CELL COUNT(AUTO) 2.98 MIL/uL (4.20-6.10); RED CELL DISTRIBUTION WIDTH 14.3 % (11.6-13.7); WHITE BLOOD COUNT (AUTO) 2.3 K/uL (4.8-10.8)
--- NOTE | 2021-11-02 12:37 | NUR ---
PT. AMBULATED TO BATHROOM
--- NOTE | 2021-11-02 12:43 | NUR ---
AT PT BEDSIDE
[2021-11-02 12:59] VITALS: BP 130/70
--- NOTE | 2021-11-02 13:00 | NUR ---
Patient does not wish to proceed with medical care recommended by DR. MORAN. Patient given information related to possible complications, up to and including , which could occur as a result of leaving hospital at this time. Patient verbalizes understanding of risks involved leaving against medical advice. Patient has signed AMA form. PT PROVIDED WITH HOME INSTRUCTIONS AND COPY OF LAB WORK
[2021-11-02 13:12] LABS: ANION GAP 12.4 (8-16); CARBON DIOXIDE 20.7 mmol/L (21-32); CREATININE 0.6 mg/dL (0.6-1.3); POTASSIUM 4.1 mmol/L (3.5-5.1)
[2021-11-02 13:26] LABS: PROTHROMBIN TIME 12.1 secs (10.8-13.4)
== END 2021-11-02 12:56 | disposition left against medical advice (07) ==
LOC: MED 09:30
DX: D69.6 Thrombocytopenia, unspecified (principal); Z20.822 Contact with and (suspected) exposure to COVID-19; E11.9 Type 2 diabetes mellitus without complications; I10 Essential (primary) hypertension; Z98.890 Other specified postprocedural states; Z88.0 Allergy status to penicillin; Z79.899 Other long term (current) drug therapy; Z79.4 Long term (current) use of insulin
CPT/HCPCS: 36415; 80048; 81002; 85025; 85610; 99285

== ENCOUNTER 2021-11-18 17:52 | Inpatient (IN) | payer OTHER, SELFPAY ==
[~2021-11-18] VITALS: Ht 165.1 cm; Wt 81.6 kg
[2021-11-18] MEDS ORDERED: DEXTROSE 50% 50 ML SYR IVP ONE ×2 (17:55→18:00)
[2021-11-18] MEDS ORDERED: PANTOPRAZOLE 40 MG INJ VIAL IVP ONE (18:05)
[2021-11-18 18:11] VITALS: BP 103/61
--- NOTE | 2021-11-18 18:19 | NUR ---
36 Y/O M BIBA BS [address], PT ONLY RESPONSIVE TO PAINFUL STIMULI, DEXTROSE GIVEN PER ORDER PT IS NOW MORE AWAKE A&OX 3 NAME, , PLACE. pmh: falls, heavy etoh use allergy: penicillin med: antibiotics for previous fall
--- NOTE | 2021-11-18 18:25 | NUR ---
PT TAKEN TO CT VIA KEMAL AND SUB ASSEMBLY TEAM WORKER
[2021-11-18 19:01] LABS: BASOPHILS % (AUTO) 0.3 % (0.0-2.0); EOSINOPHILS # (AUTO) 0.1 K/uL (0-0.4); EOSINOPHILS % (AUTO) 1.6 % (0.0-4.0); HEMATOCRIT 26.9 % (36-52); HEMOGLOBIN 9.4 g/dL (12.0-18.0); LYMPHOCYTES % (AUTO) 19.2 % (20.5-51.1); MEAN CORPUSCULAR HEMOGLOBIN 36 pg (27-31); MEAN CORPUSCULAR HGB CONC 35 g/dL (33-37); MEAN CORPUSCULAR VOLUME 101.8 fL (80-94); MONOCYTES # (AUTO) 0.6 K/uL (0.8-1.0); MONOCYTES % (AUTO) 11.1 % (1.7-9.3); NEUTROPHILS # (AUTO) 3.5 K/uL (1.8-7.7); NEUTROPHILS % (AUTO) 67.8 % (42.2-75.2); PLATELET COUNT (AUTO) 45 K/uL (140-450); RED BLOOD CELL COUNT(AUTO) 2.64 MIL/uL (4.20-6.10); RED CELL DISTRIBUTION WIDTH 13.3 % (11.6-13.7); WHITE BLOOD COUNT (AUTO) 5.2 K/uL (4.8-10.8)
[2021-11-18] MEDS ORDERED: PANTOPRAZOLE 40 MG INJ VIAL ONE (19:13)
--- NOTE | 2021-11-18 19:24 | NUR ---
Pt report given to KOSTAS MYRICK. Transfer of care at this time.
[2021-11-18 19:28] LABS: ALBUMIN 2.3 g/dL (3.4-5.0); ANION GAP 8.6 (8-16); ASPARTATE AMINOTRANSFERASE 190 U/L (15-37); CARBON DIOXIDE 29.1 mmol/L (21-32); CHLORIDE 105 mmol/L (98-107); CREATININE 0.5 mg/dL (0.6-1.3); GFR ARICAN-AMERICAN 242 mL/min (>90); GLUCOSE 98 mg/dL (74-106); POTASSIUM 3.7 mmol/L (3.5-5.1); SODIUM SERUM 139 mmol/L (136-145); TOTAL BILIRUBIN 2.2 mg/dL (0.0-1.0); UREA NITROGEN, BLOOD 11 mg/dL (7-18)
[2021-11-18 19:34] LABS: ACETAMINOPHEN < 0.5 ug/ml (10-30); SALICYLATE < 2.8 mg/dL (2.8-20.0)
--- NOTE | 2021-11-18 20:12 | NUR ---
L UA PICC LINE.
--- NOTE | 2021-11-18 20:13 | NUR ---
PATIENT AT BEDSIDE ATTEMPTING TO URINATE.
[2021-11-18 20:15] VITALS: BP 120/62
--- NOTE | 2021-11-18 20:35 | NUR ---
AMIRA GIVEN TO PAUL NURSING TECHNICIAN
[2021-11-18 20:40] LABS: PROTHROMBIN TIME 12.1 secs (10.8-13.4)
[2021-11-18] MEDS ORDERED: ONDANSETRON 4 MG/2 ML VIAL IVP PRN (20:55)
[2021-11-18] MEDS ORDERED: HYDROcodone/APAP 5/325 MG 1 TAB TAB PO PRN (20:55)
[2021-11-18] MEDS ORDERED: ACETAMINOPHEN 325 MG TAB PO PRN (20:55)
[2021-11-18] MEDS ORDERED: LORazepam 1 MG TAB PO PRN (20:55)
--- NOTE | 2021-11-18 21:19 | NUR ---
pt reports unable to urinate even with a urinal at bedside.
[2021-11-18] MEDS ORDERED: cefTRIAXone 1,000 MG VIAL ONE (21:21)
[2021-11-18] MEDS: DEXT 5% /NACL 0.9% 1,000 ML IV SCH (21:33)
--- NOTE | 2021-11-18 21:53 | NUR ---
Patient will be admitted to care of Sonido RUBIO. Admited to Telemetry. Will go to room 105B. Belongings list completed. Report to Simon KENYON.
--- NOTE | 2021-11-18 22:11 | NUR ---
PATIENT TO THE FLOOR VIA RNEY
--- NOTE | 2021-11-18 22:15 | NUR ---
ADMITTED THE PATIENT FROM ER VIA [facility]. RECEIVED PT A/A/OX4. ABLE TO AMBULATE FROM [facility] TO HIS BED WITHOUT ANY DISTRESS. PT DENIES ANY CHEST PAIN, SOB AND PALPITATIONS, ABDOMINAL PAIN, NAUSEA AND VOMITING. IVF INFUSING ORDERED. PT HAS MIDLINE ON THE LEFT UPPER EXTREMITY. VSS, AFEBRILE, SATING 100% ON RA. SR ON WINDOWS MOBILE DEVELOPER, HR-90. ORIENTED THE PATIENT TO THE ROOM SETTING AND USE OF CALL LIGHT SYSTEM. REMINDED THE PATIENT THAT HE CAN'T EAT AND DRINK FOR NOW EXCEPT FOR MEDS. PT VERBALIZED UNDERSTANDING WITH THE POC. CALL LIGHT WITHIN REACH. WILL CONTINUE POC AND MONITORING.
[2021-11-18] MEDS ORDERED: PANTOPRAZOLE 80 MG in NACL 0.9% 100 ML IV SCH (22:35)
[2021-11-19] VITALS: BP 101/47
--- NOTE | 2021-11-19 | NUR ---
PATIENT VITAL SIGNS STABLE, AFEBRILE, SATING 98% ON RA. SR ON MARKETING OPERATIONS CONSULTANT, HR-93. NO SIGN AND SYMPTOMS OF DISTRESS NOTED AND NO COMPLAIN OF PAIN AT THIS TIME. CALL LIGHT WITHIN REACH. WILL CONTINUE POC.
[2021-11-19] MEDS ORDERED: PANTOPRAZOLE 40 MG INJ VIAL ONE (01:30)
[2021-11-19] MEDS: OCTREOTIDE ACETATE 1.25 MG in NACL 0.9% 250 ML IV SCH ×2 (01:48→05:53)
--- NOTE | 2021-11-19 02:05 | NUR ---
SPOKE WITH PHARMACIST MARYCARMEN CASE REGARDING THE SANDOSTATIN DRIP ORDERED BY DR DUPONT. PHARMKACIST WANTED ME TO VERIFY THE RATE OF THE SANDOSTATIN DRIP FROM DR DUPONT. PAGED MD USING THEIR EXCHANGE AND AWAITING FOR MD TO CALL BACK.
--- NOTE | 2021-11-19 03:56 | NUR ---
DR DUPONT CALLED BACK EARLIER AND NEW ORDERS GIVEN AND WILL CARRY IT OUT.
[2021-11-19 04:00] VITALS: BP 98/44
[2021-11-19] MEDS ORDERED: OCTREOTIDE ACETATE 1000 MCG/5 ML VIAL ONE (05:39)
--- NOTE | 2021-11-19 06:27 | NUR ---
NO ACUTE EVENT THROUGHOUT THE NIGHT. PATIENT STABLE. NOT IN ANY DISTRESS. NO COMPLAIN AT THIS TIME. ALL NEEDS ATTENDED. CALL LIGHT WITHIN REACH. WILL ENDORSE THE PATIENT TO THE ONCOMING NURSE FOR CONTINUITY OF CARE.
--- NOTE | 2021-11-19 06:43 | NUR ---
OBTAINED URINE SAMPLE FROM THE PATIENT AND TOOK IT TO THE LAB.
[2021-11-19 07:01] LABS: BASOPHILS % (AUTO) 0.7 % (0.0-2.0); EOSINOPHILS % (AUTO) 1.6 % (0.0-4.0); HEMOGLOBIN 8.6 g/dL (12.0-18.0); LYMPHOCYTES # (AUTO) 0.7 K/uL (2.0-11.5); LYMPHOCYTES % (AUTO) 25.7 % (20.5-51.1); MEAN CORPUSCULAR HEMOGLOBIN 36 pg (27-31); MEAN CORPUSCULAR HGB CONC 36 g/dL (33-37); MEAN CORPUSCULAR VOLUME 101.2 fL (80-94); MONOCYTES # (AUTO) 0.3 K/uL (0.8-1.0); MONOCYTES % (AUTO) 10.8 % (1.7-9.3); NEUTROPHILS # (AUTO) 1.7 K/uL (1.8-7.7); NEUTROPHILS % (AUTO) 61.2 % (42.2-75.2); PLATELET COUNT (AUTO) 34 K/uL (140-450); RED BLOOD CELL COUNT(AUTO) 2.37 MIL/uL (4.20-6.10); RED CELL DISTRIBUTION WIDTH 13.4 % (11.6-13.7); WHITE BLOOD COUNT (AUTO) 2.9 K/uL (4.8-10.8)
--- NOTE | 2021-11-19 07:22 | NUR ---
0705 RECEIVING SHIFT REPORT FROM PM SHIFT NURSE. PT STABLE W/ NO ACUTE RESPIRATORY DISTRESS, REST IN BED, IV INFUSING. WILL CONTINUE TO MONITOR.
--- NOTE | 2021-11-19 07:23 | NUR ---
Endorsed patient to day Rn for continuity of care. Patient stable. Signing off.
[2021-11-19 07:24] LABS: ALBUMIN 2.1 g/dL (3.4-5.0); ANION GAP 9.5 (8-16); CARBON DIOXIDE 27.8 mmol/L (21-32); CREATININE 0.5 mg/dL (0.6-1.3); PHOSPHORUS 3.3 mg/dL (2.5-4.9); POTASSIUM 4.3 mmol/L (3.5-5.1); TOTAL BILIRUBIN 2.3 mg/dL (0.0-1.0)
--- NOTE | 2021-11-19 07:25 | NUR ---
RECEIVED BEDSIDE REPORT FROM GUEST RELATIONS ASSOCIATE NURSE FOR CONTINUITY OF CARE. PT BREATHING IS EVEN AND UNLABORED. NO SIGNS OF DISTRESS NOTED. PT HAS A LEFT UPPER ARM MIDLINE PATENT AND INTACT. PT IS ON RA. PT HAS NO COMPLAINTS OF PAIN. PT IS STABLE.
[2021-11-19 07:44] LABS: APPEARANCE,URINE CLEAR (CLEAR); BILIRUBIN,URINE NEGATIVE (NEGATIVE); BLOOD, URINE NEGATIVE (NEGATIVE); COLOR,URINE ORANGE (YELLOW); LEUKOCYTE ESTERASE ,URINE NEGATIVE (NEGATIVE); NITRITE, URINE NEGATIVE (NEGATIVE); UGLUCOSE NEGATIVE (NEGATIVE)
[2021-11-19 08:00] VITALS: BP 131/69
[2021-11-19 08:35] LABS: BARBITURATE, URINE NEGATIVE ng/ml (NEG <=200); BENZODIAZEPINE, URINE NEGATIVE ng/mL (NEG <=200); CANNABINOID, URINE NEGATIVE ng/mL (NEG <=50); COCAINE, URINE NEGATIVE ng/mL (NEG <=300); OPIATE, URINE NEGATIVE ng/mL (NEG <=2000); PHENCYCLIDINE SCREEN,URINE NEGATIVE ng/mL (NEG <=25)
[2021-11-19 08:49] LABS: MAGNESIUM 0.8 mg/dL (1.8-2.4)
[2021-11-19] MEDS ORDERED: LORazepam 2 MG/ML VIAL IVP PRN (08:50)
[2021-11-19] MEDS: PANTOPRAZOLE 40 MG INJ VIAL IVP SCH ×2 (08:55→17:50)
[2021-11-19] MEDS: levETIRAcetam 500 MG TAB PO SCH ×2 (08:59→20:06)
--- NOTE | 2021-11-19 10:00 | NUR ---
GAVE PT PAIN MEDS PER MD ORDER WELL TO LOWER TEMP. WAS EFFECTIVE. PT IS RESTING. PT BREATHING IS EVEN AND UNLABORED. NO SIGNS OF DISTRESS NOTED. PT HAS A LEFT UPPER ARM MIDLINE PATENT AND INTACT. PT IS ON RA. PT HAS NO COMPLAINTS OF PAIN. PT IS STABLE.
[2021-11-19] MEDS: DEXT 5% /NACL 0.9% 1,000 ML IV SCH (10:01)
[2021-11-19 10:36] LABS: PROTHROMBIN TIME 12.6 secs (10.8-13.4)
[2021-11-19] MEDS: MAG SULF 2000 MG/WATER PREMIX 50 ML IV SCH ×2 (11:11→13:08)
[2021-11-19 12:00] VITALS: BP 109/69
--- NOTE | 2021-11-19 12:00 | NUR ---
PT IS RESTING. MOTHER AT BEDSIDE. PT BREATHING IS EVEN AND UNLABORED. NO SIGNS OF DISTRESS NOTED. PT HAS A LEFT UPPER ARM MIDLINE PATENT AND INTACT. PT IS ON RA. PT HAS NO COMPLAINTS OF PAIN. PT IS STABLE.
[2021-11-19] MEDS ORDERED: MIDAZOLAM 5 MG/5 ML VIAL ONE (13:08)
[2021-11-19] MEDS ORDERED: fentaNYL citrate 0.05 MG/ML VIAL ONE (13:08)
--- NOTE | 2021-11-19 14:15 | NUR ---
PT CAME BACK FROM EGD PROCEDURE. PT RESTING. V/S ARE WNL AT THE MOMENT. WILL CONTINUE TO MONITOR. PT BREATHING IS EVEN AND UNLABORED. NO SIGNS OF DISTRESS NOTED. PT HAS A LEFT UPPER ARM MIDLINE PATENT AND INTACT. PT IS ON RA. PT HAS NO COMPLAINTS OF PAIN. PT IS STABLE.
[2021-11-19] MEDS ORDERED: MIDAZOLAM 2 MG/2 ML VIAL IVP ONE (14:35)
[2021-11-19] MEDS ORDERED: fentaNYL citrate 0.05 MG/ML VIAL IVP ONE (14:35)
--- NOTE | 2021-11-19 15:54 | NUR ---
PER MD ORDER. PURIFYING PLANT OPERATOR NURSE WILL MONITOR PT OVERNIGHT FOR S/S OF WITHDRAWAL. WILL D/C 11/20 TOMORROW IF STABLE PER MD.
[2021-11-19 16:00] VITALS: BP 146/77
--- NOTE | 2021-11-19 16:01 | NUR ---
DC PLANNING: THE PATIENT ADMITTED FROM HOME WITH C/O LOW BLOOD SUGAR AND PASSING OUT, PATIENT HAD COFFEE GROUND EMESIS IN THE FIELD. H/O CIRRHOSIS SECONDARY TO ETOH ABUSE, DM, CEREBRAL OSTEO WITH CRANIOPLASTY AT [facility] [place]. CT HEAD WITHOUT ACUTE FINDINGS, PATIENT ADMITTED FOR GI W/U. EGD DONE TODAY, NO ACUTE FINDINGS, CLEARED BY GI. CM SPOKE WITH THE PATIENT AT BEDSIDE AND HIS SISTER ZINA BY PHONE. THE PATIENT LIVES IN A GROUND FLOOR APARTMENT WITH HIS BROTHER AND MOTHER AND NORMALLY INDEPENDENT IN HIS ACTIVITIES BUT IS ASSISTED BY HIS MOTHER WHEN HE'S NOT FEELING WELL. 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 HE HAS A GLUCOMETER AND IS ON DISABILITY BECAUSE OF HIS SEIZURES. PER HIS SISTER HE DRINKS HEAVILY AND HAS RESULTANT CIRRHOSIS. THE PATIENT RECEIVES DAILY IV ABX AT HOME RELATED TO HIS CRANIAL OSTEO WHICH IS ADMINISTERED BY HIS MOTHER OR SISTER. HE HAS BEEN GETTING ABX FOR ABOUT FOUR WEEKS AND IS SEEN WEEKLY BY HOME HEALTH TO DRAW LABS BUT HIS SISTER CAN'T REMEMBER THE NAME. HE FOLLOWS UP WITH HIS PCP DR FUNK REGULARLY BUT DOES NOT SEE A NEUROLOGIST. THE PATIENT WILL DC HOME WHEN STABLE, CM WILL FOLLOW. Addendum: 11/19/21 at 1611 by Judi Juarez CM Amended: Links added.
--- NOTE | 2021-11-19 19:20 | NUR ---
ENDORSED TO MANAGER APPLIED NURSE FOR CONTINUITY OF CARE. POC DISCUSSED.
--- NOTE | 2021-11-19 19:25 | NUR ---
RECEIVED REPORT FROM AM NURSE. DISCUSSED POC FOR CONTINUITY OF CARE.
[2021-11-19 20:00] VITALS: BP 131/69
--- NOTE | 2021-11-19 20:05 | NUR ---
FREQ ROUNDS. PT C/O 04/09 PAIN IN HEAD L TEMPORAL REGION. MEDICATED WITH NORCO 1 TAB 5/. ALSO C/O NAUSEA, GIVEN ZOFRAN IVP. ALL SAFETY MEASURES IN PLACE. WILL CONTINUE TO MONITOR.
--- NOTE | 2021-11-19 21:00 | NUR ---
REASSESSED PT SLEEPING RR EVEN AND UNLABORED WITH EQUAL CHEST RISE. NAD. NO N/V. VSS. WILL CONTINUE TO OBSERVE.
--- NOTE | 2021-11-19 23:01 | NUR ---
DR COTTRELL WAS CALLED EARLIER TO NOTIFY MD REGARDING THE TROPONIN LEVEL 0.311. DR COTTRELL PHOTOGRAPHY INSTRUCTOR AND CALLED BACK. MD AWARE OF THE LATEST TROPONIN LEVEL. 0.311. MD ASKED IF PT IS ON ANTICOAGULANT. MD MADE AWARE THAT PATIENT PLATELET IS LOW 34. NO NEW ORDER GIVEN.
[2021-11-20] VITALS: BP 136/79
[2021-11-20] MEDS: DEXT 5% /NACL 0.9% 1,000 ML IV SCH ×2 (01:52→10:25)
[2021-11-20 04:00] VITALS: BP 145/76
[2021-11-20 06:07] LABS: BASOPHILS % (AUTO) 0.4 % (0.0-2.0); EOSINOPHILS # (AUTO) 0.1 K/uL (0-0.4); EOSINOPHILS % (AUTO) 4.6 % (0.0-4.0); HEMATOCRIT 25.5 % (36-52); HEMOGLOBIN 8.9 g/dL (12.0-18.0); LYMPHOCYTES # (AUTO) 0.7 K/uL (2.0-11.5); LYMPHOCYTES % (AUTO) 35.5 % (20.5-51.1); MEAN CORPUSCULAR HEMOGLOBIN 36 pg (27-31); MEAN CORPUSCULAR HGB CONC 35 g/dL (33-37); MEAN CORPUSCULAR VOLUME 102.1 fL (80-94); MONOCYTES # (AUTO) 0.3 K/uL (0.8-1.0); MONOCYTES % (AUTO) 12.8 % (1.7-9.3); NEUTROPHILS % (AUTO) 46.7 % (42.2-75.2); PLATELET COUNT (AUTO) 31 K/uL (140-450); RED CELL DISTRIBUTION WIDTH 13.4 % (11.6-13.7); WHITE BLOOD COUNT (AUTO) 2.1 K/uL (4.8-10.8)
[2021-11-20 07:21] LABS: ALBUMIN 2.1 g/dL (3.4-5.0); ANION GAP 6.4 (8-16); CARBON DIOXIDE 28.2 mmol/L (21-32); CREATININE 0.7 mg/dL (0.6-1.3); MAGNESIUM 1.5 mg/dL (1.8-2.4); PHOSPHORUS 2.3 mg/dL (2.5-4.9); POTASSIUM 4.6 mmol/L (3.5-5.1)
--- NOTE | 2021-11-20 07:34 | NUR ---
RECEIVING SHIFT REPORT FROM PM SHIFT NURSE. PT STABLE W/ NO ACUTE RESPIRATORY DISTRESS, REST IN BED, IV MIDLINE AT [facility]AL[facility] PATENT & IV FLUID IS INFUSING. WILL CONTINUE TO MONITOR
[2021-11-20 07:37] LABS: PROTHROMBIN TIME 12.1 secs (10.8-13.4)
[2021-11-20 08:00] VITALS: BP 138/81
[2021-11-20] MEDS: PANTOPRAZOLE 40 MG INJ VIAL IVP SCH (08:25)
[2021-11-20] MEDS: levETIRAcetam 500 MG TAB PO SCH (08:26)
--- NOTE | 2021-11-20 08:37 | NUR ---
PATIENT HAS BEEN SCREENED AND CATEGORIZED HIGH NUTRITION RISK. PATIENT WILL BE SEEN WITHIN 1-2 DAYS OF ADMISSION. 11/20/[address]
--- NOTE | 2021-11-20 11:00 | NUR ---
PATIENT REST IN BED, AWAKE, ALERT W/ NO ACUTE RESPIRATORY DISTRESS NOTED. AM MEDICATION GIVEN. PT TOLERATE WELL. WILL CONTINUE TO MONITOR.
[2021-11-20 11:09] VITALS: BP 138/81
[2021-11-20 12:00] VITALS: BP 128/73
--- NOTE | 2021-11-20 13:34 | NUR ---
1300 PATIENT STABLE W/ NO ACUTE RESPIRATORY DISTRESS NOTED, NO NAUSEA/VOMITING SINCE LAST NIGHT; MIDLINE @ [facility] PATENT. FAMILY IS BEDSIDE, DISCHARGE MEDICATION EDUCATION DONE, D/C CONSENT SIGNED. PT VERBALIZE THAT HE WILL F/U HIS PRE-HOSPITALIZED HOME HEALTH SERVICE FOR CONTINUE IV ANTIBIOTIC THERAPY AND INFORM PCP FOR RECENT HOSPITALIZATION F/U WITHIN 7 DAYS. [facility] ARRANGEMENT DONE FOR TRANSPORT PT HOME.
--- NOTE | 2021-11-20 15:07 | NUR ---
9055 [facility] IS HERE TO CUSTOMS INSPECTOR PATIENT. PATIENT STABLE, ID ARMBAND MOVED, NO ACUTE RESPIRATORY NOTED. FAMILY IS ACCOMPANY PATIENT GET INTO [facility] AND GO HOME.
== END 2021-11-20 15:00 | disposition home health service (06) | DRG 377 ==
LOC: MED 17:52 → MTU 21:12
PROVIDERS: ADMIT Internal Medicine; ATTEND Internal Medicine
PROC: 0DJ08ZZ Inspection of Upper Intestinal Tract, Via Natural or Artificial Opening Endoscopic (ICD-10-PCS; principal; 2021-11-19 13:00)
DX: K92.2 Gastrointestinal hemorrhage, unspecified (principal); G93.41 Metabolic encephalopathy; I21.A1 Myocardial infarction type 2; M86.8X8 Other osteomyelitis, other site; F10.139 Alcohol abuse with withdrawal, unspecified; F10.129 Alcohol abuse with intoxication, unspecified; D69.6 Thrombocytopenia, unspecified; G40.909 Epilepsy, unspecified, not intractable, without status epilepticus; Z20.822 Contact with and (suspected) exposure to COVID-19; F12.90 Cannabis use, unspecified, uncomplicated; Y90.8 Blood alcohol level of 240 mg/100 ml or more; E11.649 Type 2 diabetes mellitus with hypoglycemia without coma; K70.30 Alcoholic cirrhosis of liver without ascites; E11.69 Type 2 diabetes mellitus with other specified complication; Z88.0 Allergy status to penicillin
CPT/HCPCS: 36415; 70450; 71045; 80053; 80305; 81003; 82140; 82948; 83690; 83735; 84100; 84484; 85025; 85610; 85730; 87081; 93005; 96365; 96375; 99291; C9113; G0480; G0482; J0696; J2250; J2354; J2405; J3010; J3475; J7030; J7060; Q0092